=== PATIENT | female | born 1955 | race Caucasian/White ===

== ENCOUNTER 2018-02-28 12:14 | Inpatient (IN) | payer MEDICAID ==
[2018-02-28 12:54] LABS: ADD MAN DIFF? NO
[2018-02-28 12:58] LABS: WHITE BLOOD COUNT 6.5 10^3/ul (4.8-10.8)
[2018-02-28 12:58] LABS: BASOPHILS % 0.5 % (0.0-2.0); EOSINOPHILS # 0.1 10^3/ul (0.0-0.5); EOSINOPHILS % 1.4 % (0.0-7.0); HEMATOCRIT 43.5 % (37.0-47.0); HEMOGLOBIN 13.5 g/dl (12.0-16.0); LYMPHOCYTES # 1.6 10^3/ul (0.8-2.9); LYMPHOCYTES % 25.2 % (15.0-51.0); MEAN CORPUSCULAR HEMOGLOBIN 25.5 pg (29.0-33.0); MEAN CORPUSCULAR VOLUME 82.2 fl (82.0-101.0); MEAN PLATELET VOLUME 9.3 fl (7.4-10.4); MONOCYTE # 0.7 10^3/ul (0.3-0.9); MONOCYTES % 11.1 % (0.0-11.0); NEUTROPHILS % 61.6 % (39.0-77.0); PLATELET COUNT 302 10^3/UL (140-415); RED BLOOD COUNT 5.29 10^6/ul (4.20-5.40); RED CELL DISTRIBUTION WIDTH 19.2 % (11.5-14.5)
[2018-02-28] MEDS: ASPIRIN 81 MG TAB PO (13:05)
[2018-02-28] MEDS: NITROGLYCERIN 2% 1 GM OINT PKT TD (13:05)
[2018-02-28] MEDS: NITROGLYCERIN (SL) 0.4 MG TAB SL ×2 (13:05→22:18)
[2018-02-28 13:24] LABS: ANION GAP 14 (8-16); BLOOD UREA NITROGEN 15 mg/dl (7-20); CALCIUM 10.1 mg/dl (8.4-10.2); CARBON DIOXIDE 26 mmol/L (21-31); CHLORIDE 106 mmol/L (97-110); CREATININE 0.99 mg/dl (0.44-1.00); GLUCOSE 101 mg/dl (70-220); POTASSIUM 4.5 mmol/L (3.5-5.1); SODIUM 141 mmol/L (135-144)
[2018-02-28 13:37] LABS: TROPONIN-I < 0.012 ng/ml (0.000-0.120)
[2018-02-28] MEDS: LABETALOL HCL 20MG INJ IV (13:52)
[2018-02-28] MEDS ORDERED: ONDANSETRON 4 MG INJ IV (15:00)
[2018-02-28] MEDS ORDERED: ACETAMINOPHEN 325 MG TAB PO (15:00)
[2018-02-28] MEDS ORDERED: NACL 0.9% 3 ML SYG IV (16:00)
[2018-02-28] MEDS: ONDANSETRON 4 MG INJ IV ×2 (16:02→19:56)
[2018-02-28] MEDS: morphine 4 MG/ML VIAL IV (16:02)
[2018-02-28 16:44] LABS: HEMOGLOBIN A1C 5.6 % (0-5.9)
[2018-02-28 16:46] LABS: B-TYPE NATRIURETIC PEPTIDE 136 PG/ML (0-125)
[2018-02-28 16:59] LABS: FREE T4 (FREE THYROXINE) 0.69 ng/dl (0.78-2.44)
[2018-02-28] MEDS ORDERED: hydrALAzine 20 MG INJ IV (17:00)
[2018-02-28 17:18] LABS: CREATINE KINASE 94 IU/L (23-200)
[2018-02-28 17:31] LABS: D-DIMER 582.34 ng/ml (<460)
[2018-02-28 17:32] LABS: CK INDEX 0.5; CK-MB 0.46 ng/ml (0.0-2.4); TROPONIN-I < 0.012 ng/ml (0.000-0.120)
[2018-02-28] MEDS: morphine 2 MG INJ IV ×2 (19:56→22:22)
[2018-02-28] MEDS: FAMOTIDINE 20 MG INJ IV (20:43)
[2018-02-28] MEDS: ATORVASTATIN 80 MG TAB PO (20:43)
[2018-02-28] MEDS: IOHEXOL 100 ML (21:28)
[2018-02-28] MEDS: SOD CHLORIDE 0.9% 100 ML (21:28)
[2018-02-28 23:00] LABS: TROPONIN-I < 0.012 ng/ml (0.000-0.120)
[2018-03-01 06:56] LABS: ADD MAN DIFF? NO
[2018-03-01 06:59] LABS: BASOPHILS % 0.2 % (0.0-2.0); EOSINOPHILS # 0.1 10^3/ul (0.0-0.5); EOSINOPHILS % 1.1 % (0.0-7.0); HEMATOCRIT 37.4 % (37.0-47.0); HEMOGLOBIN 11.7 g/dl (12.0-16.0); LYMPHOCYTES # 1.4 10^3/ul (0.8-2.9); LYMPHOCYTES % 14.9 % (15.0-51.0); MEAN CORPUSCULAR HEMOGLOBIN 25.6 pg (29.0-33.0); MEAN CORPUSCULAR HGB CONC 31.3 g/dl (32.0-37.0); MEAN CORPUSCULAR VOLUME 81.8 fl (82.0-101.0); MEAN PLATELET VOLUME 9.5 fl (7.4-10.4); MONOCYTES % 10.9 % (0.0-11.0); NEUTROPHIL # 6.6 10^3/ul (1.6-7.5); NEUTROPHILS % 72.6 % (39.0-77.0); PLATELET COUNT 254 10^3/UL (140-415); RED BLOOD COUNT 4.57 10^6/ul (4.20-5.40); RED CELL DISTRIBUTION WIDTH 19.1 % (11.5-14.5)
[2018-03-01 06:59] LABS: WHITE BLOOD COUNT 9.1 10^3/ul (4.8-10.8)
[2018-03-01 07:17] LABS: PHOSPHORUS 3.5 mg/dl (2.5-4.9)
[2018-03-01 07:17] LABS: CHOL/HDL RATIO 4.4 RATIO; CHOLESTEROL 154 mg/dl (100-200); HDL CHOLESTEROL 35 mg/dl (35-98); LDL CHOLESTEROL,CALCULATED 99 mg/dl; MAGNESIUM 2.2 mg/dl (1.7-2.5); TRIGLYCERIDES 100 mg/dl (0-149)
[2018-03-01 07:24] LABS: ALANINE AMINOTRANSFERASE 23 IU/L (13-69); ALBUMIN 3.5 g/dl (3.3-4.9); ALBUMIN/GLOBULIN RATIO 1.34; ALKALINE PHOSPHATASE 34 IU/L (42-121); ANION GAP 11 (8-16); ASPARTATE AMINO TRANSFERASE 22 IU/L (15-46); BILIRUBIN,INDIRECT 0.8 mg/dl (0-1.1); BILIRUBIN,TOTAL 0.8 mg/dl (0.2-1.3); BLOOD UREA NITROGEN 17 mg/dl (7-20); CALCIUM 9.3 mg/dl (8.4-10.2); CARBON DIOXIDE 26 mmol/L (21-31); CHLORIDE 107 mmol/L (97-110); CREATININE 0.95 mg/dl (0.44-1.00); GLUCOSE 109 mg/dl (70-220); POTASSIUM 4.8 mmol/L (3.5-5.1); SODIUM 139 mmol/L (135-144); TOTAL PROTEIN 6.1 g/dl (6.1-8.1)
[2018-03-01 07:29] LABS: TROPONIN-I < 0.012 ng/ml (0.000-0.120)
[2018-03-01] MEDS: ISOSORBIDE MONONITRATE(SR)30 MG TAB PO (10:13)
[2018-03-01] MEDS: LOSARTAN 50 MG TAB PO (10:14)
[2018-03-01] MEDS: ASPIRIN (EC) 81 MG TAB PO (10:15)
[2018-03-01] MEDS: FAMOTIDINE 20 MG INJ IV ×2 (10:15→21:31)
[2018-03-01] MEDS: HYDROCHLOROTHIAZIDE 25 MG TAB PO (10:15)
[2018-03-01] MEDS: ENOXAPARIN 40 MG/0.4 ML SYG SC (10:21)
[2018-03-01] MEDS ORDERED: CEPASTAT LOZENGE MT (11:00)
[2018-03-01] MEDS ORDERED: ALBUTEROL/IPRATROPIUM (NEB) 3 ML AMP HHN (11:00)
[2018-03-01] MEDS: REGADENOSON 0.4 MG/5 ML SYG (11:55)
[2018-03-01] MEDS: ALBUTEROL/IPRATROPIUM (NEB) 3 ML AMP HHN ×3 (14:00→20:14)
[2018-03-01] MEDS: AZITHROMYCIN 250 MG TAB PO (14:38)
[2018-03-01] MEDS: ACETAMINOPHEN 325 MG TAB PO (14:39)
[2018-03-01 17:18] LABS: C-REACTIVE PROTEIN 6.1 mg/dl (0.0-0.9)
[2018-03-01 18:00] LABS: ERYTHROCYTE SEDIMENTATION RATE 14 mm/Hr (0-30)
[2018-03-01] MEDS: ATORVASTATIN 80 MG TAB PO (21:31)
[2018-03-02 07:01] LABS: WHITE BLOOD COUNT 6.8 10^3/ul (4.8-10.8)
[2018-03-02 07:01] LABS: ADD MAN DIFF? NO; BASOPHILS % 0.4 % (0.0-2.0); EOSINOPHILS # 0.2 10^3/ul (0.0-0.5); EOSINOPHILS % 3.1 % (0.0-7.0); HEMATOCRIT 40.6 % (37.0-47.0); HEMOGLOBIN 12.7 g/dl (12.0-16.0); LYMPHOCYTES # 1.7 10^3/ul (0.8-2.9); LYMPHOCYTES % 24.9 % (15.0-51.0); MEAN CORPUSCULAR HEMOGLOBIN 25.8 pg (29.0-33.0); MEAN CORPUSCULAR HGB CONC 31.3 g/dl (32.0-37.0); MEAN CORPUSCULAR VOLUME 82.4 fl (82.0-101.0); MEAN PLATELET VOLUME 9.4 fl (7.4-10.4); MONOCYTE # 0.7 10^3/ul (0.3-0.9); MONOCYTES % 10.7 % (0.0-11.0); NEUTROPHIL # 4.1 10^3/ul (1.6-7.5); NEUTROPHILS % 60.6 % (39.0-77.0); PLATELET COUNT 280 10^3/UL (140-415); RED BLOOD COUNT 4.93 10^6/ul (4.20-5.40); RED CELL DISTRIBUTION WIDTH 19.2 % (11.5-14.5)
[2018-03-02 07:20] LABS: ANION GAP 12 (8-16); BLOOD UREA NITROGEN 16 mg/dl (7-20); CALCIUM 10.1 mg/dl (8.4-10.2); CARBON DIOXIDE 28 mmol/L (21-31); CHLORIDE 104 mmol/L (97-110); CREATININE 0.98 mg/dl (0.44-1.00); GLUCOSE 105 mg/dl (70-220); POTASSIUM 4.8 mmol/L (3.5-5.1); SODIUM 139 mmol/L (135-144)
[2018-03-02 07:31] LABS: PHOSPHORUS 3.1 mg/dl (2.5-4.9)
[2018-03-02 07:31] LABS: MAGNESIUM 2.2 mg/dl (1.7-2.5)
[2018-03-02] MEDS: ALBUTEROL/IPRATROPIUM (NEB) 3 ML AMP HHN ×3 (08:00→20:19)
[2018-03-02] MEDS: NITROGLYCERIN (SL) 0.4 MG TAB SL (08:19)
[2018-03-02] MEDS: morphine 2 MG INJ IV (08:25)
[2018-03-02] MEDS: FAMOTIDINE 20 MG INJ IV (08:25)
[2018-03-02] MEDS: LOSARTAN 50 MG TAB PO (08:27)
[2018-03-02] MEDS: AZITHROMYCIN 250 MG TAB PO (08:28)
[2018-03-02] MEDS: ENOXAPARIN 40 MG/0.4 ML SYG SC (08:38)
[2018-03-02] MEDS: ASPIRIN (EC) 81 MG TAB PO (09:01)
[2018-03-02] MEDS: INFLUENZA VIRUS VACCINE 0.5 ML (DISPENSING) IM* (09:02)
[2018-03-02] MEDS: PANTOPRAZOLE (EC) 40 MG TAB PO (18:16)
[2018-03-02] MEDS: ATORVASTATIN 80 MG TAB PO (20:49)
[2018-03-03] MEDS: PANTOPRAZOLE (EC) 40 MG TAB PO (05:44)
[2018-03-03 05:45] LABS: ADD MAN DIFF? NO
[2018-03-03 05:49] LABS: WHITE BLOOD COUNT 5.5 10^3/ul (4.8-10.8)
[2018-03-03 05:49] LABS: BASOPHILS % 0.5 % (0.0-2.0); EOSINOPHILS # 0.3 10^3/ul (0.0-0.5); EOSINOPHILS % 4.7 % (0.0-7.0); HEMATOCRIT 41.4 % (37.0-47.0); HEMOGLOBIN 12.9 g/dl (12.0-16.0); LYMPHOCYTES # 1.6 10^3/ul (0.8-2.9); LYMPHOCYTES % 28.1 % (15.0-51.0); MEAN CORPUSCULAR HEMOGLOBIN 25.7 pg (29.0-33.0); MEAN CORPUSCULAR HGB CONC 31.2 g/dl (32.0-37.0); MEAN CORPUSCULAR VOLUME 82.6 fl (82.0-101.0); MONOCYTE # 0.7 10^3/ul (0.3-0.9); MONOCYTES % 11.8 % (0.0-11.0); NEUTROPHILS % 54.5 % (39.0-77.0); PLATELET COUNT 283 10^3/UL (140-415); RED BLOOD COUNT 5.01 10^6/ul (4.20-5.40); RED CELL DISTRIBUTION WIDTH 19.6 % (11.5-14.5)
[2018-03-03 06:20] LABS: ANION GAP 12 (8-16); BLOOD UREA NITROGEN 15 mg/dl (7-20); CALCIUM 10.2 mg/dl (8.4-10.2); CARBON DIOXIDE 29 mmol/L (21-31); CHLORIDE 104 mmol/L (97-110); GLUCOSE 96 mg/dl (70-220); POTASSIUM 4.5 mmol/L (3.5-5.1); SODIUM 140 mmol/L (135-144)
[2018-03-03 06:22] LABS: MAGNESIUM 2.2 mg/dl (1.7-2.5)
[2018-03-03 06:22] LABS: PHOSPHORUS 3.1 mg/dl (2.5-4.9)
[2018-03-03] MEDS: ALBUTEROL/IPRATROPIUM (NEB) 3 ML AMP HHN ×3 (07:56→14:30)
[2018-03-03] MEDS: ASPIRIN (EC) 81 MG TAB PO (09:07)
[2018-03-03] MEDS: AZITHROMYCIN 250 MG TAB PO (09:07)
[2018-03-03] MEDS: LOSARTAN 50 MG TAB PO (09:08)
[2018-03-03] MEDS: ENOXAPARIN 40 MG/0.4 ML SYG SC (09:09)
[2018-03-06 11:16] LABS: PROCALCITONIN <0.10 ng/mL (<0.10)
== END 2018-03-03 14:15 | disposition home or self-care (01) | DRG 305 ==
LOC: E/R 12:14 → PP2 03-02 17:24 → TEL 14:31
DX: I16.0 Hypertensive urgency (principal); L97.429 Non-pressure chronic ulcer of left heel and midfoot with unspecified severity; L03.116 Cellulitis of left lower limb; J02.9 Acute pharyngitis, unspecified; I25.10 Atherosclerotic heart disease of native coronary artery without angina pectoris; E78.5 Hyperlipidemia, unspecified; R07.89 Other chest pain; L97.519 Non-pressure chronic ulcer of other part of right foot with unspecified severity; Z95.5 Presence of coronary angioplasty implant and graft
CPT/HCPCS: 71045; 71275; 73630-LT; 73718; 78452; 80048; 80053; 80061; 82550; 82553; 83036; 83735; 83880; 84100; 84145; 84439; 84443; 84484; 85025; 85378; 85651; 86140; 90686; 93005; 93017; 93306; 93922; 93971; 94640; 94664; 96374; 99291-25; G0378

== ENCOUNTER 2018-07-01 15:01 | Emergency (ER) | payer MEDICAID ==
[2018-07-01 16:33] LABS: ADD MAN DIFF? NO
[2018-07-01] MEDS: SOD CHLORIDE 0.9% 500 ML IV (16:34)
[2018-07-01] MEDS: KETOROLAC 15 MG INJ IV (16:35)
[2018-07-01] MEDS: BELLADONNA/PHENOBARBITAL TAB PO (16:37)
[2018-07-01] MEDS: LIDOCAINE/MYLANTA 40 ML BTL PO (16:37)
[2018-07-01 16:39] LABS: WHITE BLOOD COUNT 5.9 10^3/ul (4.8-10.8)
[2018-07-01 16:39] LABS: BASOPHILS % 0.3 % (0.0-2.0); EOSINOPHILS # 0.1 10^3/ul (0.0-0.5); EOSINOPHILS % 1.9 % (0.0-7.0); HEMOGLOBIN 13.2 g/dl (12.0-16.0); LYMPHOCYTES # 1.8 10^3/ul (0.8-2.9); LYMPHOCYTES % 30.6 % (15.0-51.0); MEAN CORPUSCULAR HEMOGLOBIN 27.1 pg (29.0-33.0); MEAN CORPUSCULAR HGB CONC 32.2 g/dl (32.0-37.0); MEAN CORPUSCULAR VOLUME 84.2 fl (82.0-101.0); MEAN PLATELET VOLUME 9.4 fl (7.4-10.4); MONOCYTE # 0.6 10^3/ul (0.3-0.9); MONOCYTES % 9.7 % (0.0-11.0); NEUTROPHIL # 3.4 10^3/ul (1.6-7.5); NEUTROPHILS % 57.2 % (39.0-77.0); PLATELET COUNT 271 10^3/UL (140-415); RED BLOOD COUNT 4.87 10^6/ul (4.20-5.40)
[2018-07-01 17:37] LABS: ALANINE AMINOTRANSFERASE 24 IU/L (13-69); ALBUMIN 3.7 g/dl (3.3-4.9); ALBUMIN/GLOBULIN RATIO 1.23; ALKALINE PHOSPHATASE 62 IU/L (42-121); ANION GAP 3 (5-13); ASPARTATE AMINO TRANSFERASE 22 IU/L (15-46); BLOOD UREA NITROGEN 22 mg/dl (7-20); CALCIUM 9.4 mg/dl (8.4-10.2); CARBON DIOXIDE 24 mmol/L (21-31); CHLORIDE 112 mmol/L (97-110); CREATININE 0.64 mg/dl (0.44-1.00); Estimated GFR > 60 mL/min (>60); GLUCOSE 113 mg/dl (70-220); LIPASE 115 U/L (23-300); POTASSIUM 3.8 mmol/L (3.5-5.1); SODIUM 139 mmol/L (135-144); TOTAL PROTEIN 6.7 g/dl (6.1-8.1)
[2018-07-01 17:49] LABS: B-TYPE NATRIURETIC PEPTIDE 33 PG/ML (0-125); TROPONIN-I < 0.012 ng/ml (0.000-0.120)
== END 2018-07-01 20:00 | disposition home or self-care (01) ==
LOC: E/R 15:01
DX: K44.9 Diaphragmatic hernia without obstruction or gangrene (principal); I10 Essential (primary) hypertension; I25.10 Atherosclerotic heart disease of native coronary artery without angina pectoris; Z79.82 Long term (current) use of aspirin; Z98.61 Coronary angioplasty status
CPT/HCPCS: 36415; 71045; 80053; 83690; 83880; 84484; 85025; 93005; 96374; 99285-25